=== PATIENT | male | born 1970 | race Caucasian/White ===

== ENCOUNTER 2021-03-05 09:03 | Observation (INO) | payer OTHER, SELFPAY ==
[2021-03-05 09:03] VITALS: BP 147/69; PULSE 67; RESP 20; TEMP 36.4; O2SAT 100; BMI 36.3
--- NOTE | 2021-03-05 09:15 | CT_ITS ---
STUDY: CT ABDOMEN AND PELVIS WITHOUT CONTRAST REASON FOR EXAM: Male, 50 years old. Flank pain RADIATION DOSAGE (If Supplied By Facility): CTDIvol = ( 19.73 ) mGy, DLP = ( 1158.42 ) mGycm TECHNIQUE: Transaxial images were obtained from the dome of the diaphragm to the symphysis pubis without oral contrast, and without intravenous contrast. Sagittal and coronal images were reconstructed. Individualized dose optimization techniques were used for this CT. COMPARISON: None. FINDINGS: Calcified granulomas in the right lower lobe The visualized portions of the heart are within normal limits. Normal liver. Normal gallbladder and extrahepatic biliary system. There is a benign calcified granuloma of the spleen. Normal pancreas. Normal bilateral adrenal glands. Normal right kidney. There is a 3.9 mm calculus in the distal portion of the left ureter just proximal to the ureterovesical junction. There is also evidence of a 5.6 mm calculus at the left ureterovesical junction. Clinical correlation is recommended. Normal visualized stomach. Normal small intestine. There are scattered colonic diverticula consistent with diverticulosis. The patient is status post appendectomy. Normal abdominal aorta. Normal inferior vena cava. There is borderline retroperitoneal lymphadenopathy with enlarged nodes no greater than 10mm in the short axis diameter. Normal urinary bladder. Normal abdominal wall. Normal osseous structures. CT/Abdomen/Pelvis without Cont IMPRESSION: Findings suggestive of 2 ureteral calculi in the distal portion of the left ureter as well as at the left ureterovesical junction. Clinical correlation is recommended. Electronically Signed: Mark Montes MD at 10:37 EDT , Service support ,
--- NOTE | 2021-03-05 09:16 | EX.ED.DYSGE1 ---
HPI History of Present Illness Chief Complaint: Back Detail of Chief Complaint: Patient presents with back pain that started yesterday as well as lower abd Informant: patient Onset/Context/Timing Onset: Yesterday Current Severity: 9/10 Worsened by: Movement Relieved by: Nothing Narrative Narrative: Patient presents to the emergency department complaint of back pain that started yesterday while mowing the lawn. Patient states that initially had some cramping and spasms in his lower back and then he went to move a swing and developed sudden onset of severe pain in his back. Patient also complaining of some lower abdominal discomfort. Pain is severe and worse with certain movements. He is not had any urinary symptoms. He denies nausea or vomiting. Patient has not had pain like this before. He denies pain rating down his legs. He denies weakness in extremities. He denies change in bowel or bladder function. Patient has not had recent illness. No significant medical history otherwise. Prior similar symptoms: No PFSH PFSH Medical History (Updated 03/05/21 @ 12:[address] Shayla Jaimes, ) Chronic systolic (congestive) heart failure DM (diabetes mellitus) Hypercalciuria Hyperlipemia Klinefelter syndrome Obesity (BMI 35.0-39.9 without comorbidity) Osteopenia Primary male hypogonadism Vitamin D deficiency Home Medications Multi Vitamin 1 tab PO/SL DAILY 03/05/21 [History Last Taken Unknown] ergocalciferol (vitamin D2) [Vitamin D2] 50,000 unit PO Q14D 03/05/21 [History Last Taken Unknown] hydrochlorothiazide 25 mg PO DAILY 03/05/21 [History Last Taken Unknown] metoprolol succinate 50 mg PO DAILY 03/05/21 [History Last Taken Unknown] rosuvastatin 20 mg PO DAILY 03/05/21 [History Last Taken Unknown] Allergy/AdvReac Type Severity Reaction Status Date / Time hydrogen peroxide Allergy Rash Verified 03/05/21 09:06 [From Peroxyl] Penicillins Allergy Hives Verified 03/05/21 09:06 sulfamethoxazole Allergy NEEDS Verified 03/05/21 09:06 [From Bactrim] FOLLOW-UP trimethoprim [From Bactrim] Allergy NEEDS Verified 03/05/21 09:06 FOLLOW-UP Surgical History (Updated 03/05/21 @ 09:13 by Valeria Loya) History of appendectomy Social History Smoking Status: Never smoker ROS ROS ED Constitutional Constitutional ED: Reports systems reviewed and no addt'l complaints, except as documented; Denies body ache(s), change in weight or chills Eyes Eyes: Denies acute decrease in peripheral vision, change in vision, double vision or loss of vision ENT ENT ED: Reports none; Denies ear pain, lip swelling, loss taste/smell, neck pain, otalgia or sore throat Cardiovascular Cardiovascular: Reports none; Denies abdominal pain, chest pain with activity, leg edema, lightheadedness, palpitations, rapid heart rate or syncope Respiratory/Chest Respiratory/Chest: Reports none; Denies change in mental status, dry cough, dyspnea, hemoptysis, shortness of breath at rest or shortness of breath with exertion Gastrointestinal Gastrointestinal: Reports none and abdominal pain; Denies change in stool character, diarrhea, hematemesis, hematochezia, melena, rectal bleeding or vomiting Genitourinary Genitourinary ED: Reports none; Denies abdominal discomfort, anuria, dysuria, genital pain or polyuria Musculoskeletal Musculoskeletal: Reports none and back pain; Denies arthralgias, difficulty walking, extremity pain, muscle weakness or myalgias Integumentary Reports none; Denies abscess or rash Neurologic Neurologic: Reports none; Denies abnormal gait, confusion, focal weakness, frequent falls, headache(s), loss of vision, numbness, paresthesias, radicular pain, vertigo or weakness Psychiatric Psychiatric: Reports systems reviewed and no addt'l complaints, except as documented and none; Denies behavioral changes, confusion, difficulty concentrating, hallucinations, suicidal ideation, tactile hallucinations or visual hallucinations Endocrine Endocrinology: Denies none, cold intolerance, excessive sweating, fatigue or heat intolerance Hematologic/Lymphatic Hematologic/Lymphatic: Reports none; Denies anemia, easy bleeding or easy bruising Allergic/Immunologic Allergic/Immunologic ED: Denies as per HPI, none, lip swelling, mouth swelling, throat swelling, tongue swelling or hives EXAM Physical Exam Const Vital Signs: 03/05/21 09:03 Temperature 97.6 F L Temperature Source Temporal Pulse Rate 67 Respiratory Rate 20 H Blood Pressure 147/69 H Blood Pressure Mean 95 Pulse Ox 100 Oxygen Delivery Method Room Air Positive well nourished and well developed General Appearance ED: well developed and NAD HEENT Reports TM's clear and moist mucous membranes normocephalic and atraumatic; Negative for trauma or tenderness Tympanic Membrane ED: Yes TM's clear Eyes PERRL and EOMs intact bilaterally General Eye ED: Negative for pale conjunctiva or scleral icterus Neck no lymphadenopathy, supple and no JVD General: Negative for tenderness Chest Wall inspection of chest normal and palpation of chest normal Chest: Negative for tenderness Resp normal respiratory effort and clear to auscultation bilaterally Effort and Inspection: Negative for respiratory distress or pain with movement Auscultation: Negative for rhonchi, wheezes or diminished lung sounds Cardio regular rate, regular rhythm, S1 normal heart sound, S2 normal heart sound and no murmurs Peripheral Pulses: pulses 2+ throughout GI normal to inspection, nondistended, normoactive bowel sounds, soft to palpation, non-distended and no masses GI Narrative: Patient has diffuse tenderness to the lower abdomen to the right lower quadrant suprapubic and left lower quadrant region. No rebound, rigidity, or peritoneal signs noted. No masses palpated. Palpation: soft Back/Spine no CVA tenderness and no thoracic nor lumbar tenderness Back/Spine Narrative: Patient has mostly mid back tenderness on exam over L1-L2 area. Negative straight leg raises. Deep tendon reflexes are plus 2 out of 4 bilaterally at the patella Achilles. Patient has normal 5 extension bilaterally. Normal sensation to light touch. Lumbar Spine / Lower Back: lumbar spinal tenderness Extremity normal to inspection General Extremety ED: Negative for edema General Extremity: Negative for edema Neuro oriented x3, CN's II-XII intact bilaterally, no sensory deficits noted and gait normal Sensorium / Orientation: awake, alert, oriented to person, oriented to place and oriented to time Motor Exam: strength 5/5 throughout and strength abnormal Psych mental status grossly normal Skin no rashes or lesions noted and no wounds MDM MDM MDM Narrative Medical decision making narrative: Patient initially medicated with morphine and Zofran and did not get much pain relief with that. He was then given a Dilaudid 1 mg dose and he did get pain relief with that however still complaining of a lot of pain with movement. Initially recommended transfer to facility where urology would be available to see the patient as I suspect he may have kidney stones. I discussed case with [facility] urologist who looked at the images and stated that the patient does not have urolithiasis but rather phleboliths and does not feel that patient needs transfer to their facility for any type of intervention. I did evaluate the images personally and I am not convinced that the calcifications in the pelvis are within the ureter but rather more loss control representative of phleboliths. Patient does not have hydroureter or hydronephrosis or perinephric stranding. At this point I feel patient needs admission for pain management. Patient did become somewhat somnolent after medication with Dilaudid. Lab Data Labs: Laboratory Results - last 24 hr 03/05/21 03/05/21 03/05/21 09:28 09:41 09:41 WBC 5.1 RBC 4.88 Hgb 14.2 Hct 44.6 MCV 91.4 MCH 29.1 MCHC 31.8 L RDW Std Deviation 42.0 RDW Coeff of Pilar 12.8 Plt Count 199 MPV 10.0 Immature Gran % (Auto) 0.200 Neut % (Auto) 57.5 Lymph % (Auto) 24.7 [place] % (Auto) 7.6 Eos % (Auto) 8.8 H Baso % (Auto) 1.2 H Absolute Neuts (auto) 2.9 Absolute Lymphs (auto) 1.26 Nucleated RBC % 0 Sodium 138 Potassium 3.9 Chloride 102 Carbon Dioxide 30.0 Anion Gap 6 BUN 22 H Creatinine 1.18 Estim Creat Clear Calc 84.03 Est GFR (MDRD) Af Amer 84 Est GFR (MDRD) Non-Af 70 BUN/Creatinine Ratio 18.6 Glucose 108 H Calcium 9.9 Urine Color Yellow Urine Clarity Clear Urine pH 7.0 Ur Specific [place] 1.010 Urine Protein Negative Urine Glucose (UA) Normal Urine Ketones Negative Urine Occult Blood Negative Urine Nitrite Negative Urine Bilirubin Negative Urine Urobilinogen Normal Ur Leukocyte Esterase Negative Urine RBC 0 SEEN Urine WBC 0 SEEN Ur Squamous Epith Cells 0-5 SEEN Urine Bacteria 0 SEEN Urine Mucus 0 SEEN Radiography Diagnostic Testing: Radiology Impression Abdomen/Pelvis CT 03/05/21 09:15 IMPRESSION: Findings suggestive of 2 ureteral calculi in the distal portion of the left ureter as well as at the left ureterovesical junction. Clinical correlation is recommended. Electronically Signed: Mark Montes MD at 10:37 EDT , Service support , Discharge Plan Dx/Rx/DC Orders Clinical Impression: Intractable back pain Disposition Disposition: Acute Care Hospital [facility]
[2021-03-05 09:32] LABS: Bacteria 0 SEEN /hpf (None Seen); Mucous, Urine 0 SEEN /hpf (<or=2+); Red Blood Cells-Urine 0 SEEN /hpf (0-5); White Blood Cells 0 SEEN /hpf (0-5)
[2021-03-05 09:34] LABS: Color, Urine Yellow (Yellow); Glucose, Dipstick Normal (Normal); Ketone-Dipstick Negative (Negative); Leukocyte Esterase-Dipstick Negative /ul (Negative); Nitrite-Dipstick Negative (Negative); Occult Blood-Urine Negative /ul (Negative); Protein-Dipstick Negative (Negative); Urine Bilirubin Dipstick Negative (Negative); Urine Clarity Clear (Clear); Urine Urobilinogen Normal (Normal)
[2021-03-05] MEDS: Ondansetron 4 MG/2 ML Vial IV ×2 (09:37→14:26)
[2021-03-05] MEDS: Ketorolac 30 MG/ML Syringe IV (09:37)
[2021-03-05] MEDS: Morphine 4 MG/ML Syringe IV (09:37)
[2021-03-05 09:40] LABS: Squamous Epithelial Cells - UA 0-5 SEEN /hpf (0-5)
[2021-03-05] MEDS: 0.9% Normal Saline 1,000 ML 1000 ML IV (09:43)
[2021-03-05] MEDS: 0.9% Normal Saline 1,000 ML 150 ML IV (09:43)
[2021-03-05 09:52] LABS: Absolute Lymphocyte Count 1.26 X10^3/uL (0.83-4.51); Absolute Neutrophil Count 2.9 X10^3/uL (2.0-7.7); Basophil# 0.06 X10^3/uL; Basophil% 1.2 % (0-1); Eosinophil# 0.45 X10^3/uL; Eosinophils% 8.8 % (0-5); Hematocrit 44.6 % (40-54); Hemoglobin 14.2 g/dL (13.0-16.5); Lymphocyte # 1.26 X10^3/ul (0.83-4.51); Lymphocyte % 24.7 % (19-41); Mean Corp Hgb Conc 31.8 g/dL (32-36); Mean Corpuscular Hgb 29.1 pg (27.0-32.0); Mean Corpuscular Volume 91.4 fL (80-94); Monocyte# 0.39 X10^3/uL; Monocyte% 7.6 % (0-10); NRBC Flagged by Analyzer 0 % (0-5); Neutrophil # 2.93 X10^3/uL (2.7-7.7); Neutrophil % 57.5 % (47-70); Platelet Count 199 K/mm3 (150-450); RBC Distribution Width CV 12.8 % (11.6-14.6); Red Blood Count 4.88 M/mm3 (4.6-6.2); White Blood Count 5.1 K/mm3 (4.4-11.0)
[2021-03-05 10:05] LABS: Anion Gap 6 (5-15); BUN 22 mg/dL (7-18); BUN/Creat Ratio 18.6 RATIO (10-20); Calcium,Total 9.9 mg/dL (8.5-10.1); Chloride 102 mmol/L (98-107); Creatinine, Serum 1.18 mg/dL (0.70-1.30); EST Glomerular Filtration Rate 70 mL/min (>60); Est Glom Filt Rate - Afr Amer 84 mL/min (>60); Estimated Creatinine Clearance 84.03 ml/min; Glucose 108 mg/dL (74-106); Potassium 3.9 mmol/L (3.5-5.1); Sodium Level 138 mmol/L (136-145)
[2021-03-05] MEDS: HYDROmorphone 1 MG/ML Syringe IV (10:51)
[2021-03-05 12:16] VITALS: BP 140/70; PULSE 75; RESP 18; TEMP 36.7; O2SAT 96
--- NOTE | 2021-03-05 12:45 | NURSING ---
302 willie intractable back pain
--- NOTE | 2021-03-05 13:05 | HP.PCM_ITS ---
[facility] - General General Date of Admission: 03/05/21 HPI Narrative PEDRO SYLVESTER, is a 50 M with a past medical history as outlined was admitted through the ED on 03/05/2021 with a complaint of back pain. Patient states he was mowing his lawn the day before admission and tried moving a swing set out of the way so he could mow the area. He subsequently started having severe lower back pain. Pain was not relieved by [id number] pain meds and was persistent and worsening so he decided to come into the ED. He has not had such pain before and denied any urinary or fecal incontinence or any numbness or tingling in his lower extremities. Blood pressure was 147/69 and pulse rate was 67 with respiratory of 20 he was saturating at 100% on room air. CT of the abdomen and pelvis done without contrast was suggestive of 2 ureteral calculi in the distal portion of the left ureter as well as the left ureterovesical junction with clinical correlation recommended. 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 Urologist reviewed imaging and thought it was just phleboliths and did not think that it was kidney stones. Patient is therefore being admitted to be managed for intractable back pain which did not improve with pain meds in the ED. [facility] Medical History (Updated 03/05/21 @ 12:[address] Shayla Jaimes, ) Chronic systolic (congestive) heart failure DM (diabetes mellitus) Hypercalciuria Hyperlipemia Klinefelter syndrome Obesity (BMI 35.0-39.9 without comorbidity) Osteopenia Primary male hypogonadism Vitamin D deficiency Home Medications Multi Vitamin 1 tab PO/SL DAILY 03/05/21 [History Last Taken Unknown] calcium 1,500 mg PO DAILY 03/05/21 [History Last Taken 03/04/21] ergocalciferol (vitamin D2) [Vitamin D2] 50,000 unit PO Q14D 03/05/21 [History Last Taken Unknown] hydrochlorothiazide 25 mg PO DAILY 03/05/21 [History Last Taken Unknown] metoprolol succinate 50 mg PO DAILY 03/05/21 [History Last Taken Unknown] rosuvastatin 20 mg PO DAILY 03/05/21 [History Last Taken Unknown] Allergy/AdvReac Type Severity Reaction Status Date / Time hydrogen peroxide Allergy Rash Verified 03/05/21 09:06 [From Peroxyl] Penicillins Allergy Hives Verified 03/05/21 09:06 sulfamethoxazole Allergy NEEDS Verified 03/05/21 09:06 [From Bactrim] FOLLOW-UP trimethoprim [From Bactrim] Allergy NEEDS Verified 03/05/21 09:06 FOLLOW-UP Surgical History (Updated 03/05/21 @ 09:13 by Valeria Loya) History of appendectomy Social History Smoking Status: Never smoker ROS Constitutional Constitutional: Denies anorexia, change in weight, chills, fatigue, fever(s), malaise, night sweats, weakness, weight gain or weight loss Eyes Eyes: Denies discharge from eye(s) ENT HEENT: Denies dysphagia Cardiovascular Cardiovascular: Denies chest pain, edema, orthopnea, palpitations or syncope Respiratory/Chest Respiratory/Chest: Denies cough, shortness of breath at rest or shortness of breath with exertion Gastrointestinal Gastrointestinal: Denies abdominal pain or constipation Musculoskeletal Musculoskeletal: Reports back pain; Denies extremity pain, joint pain, joint stiffness, joint swelling, limited range of motion, muscle weakness, neck pain or stiffness Integumentary Integumentary: Denies dry skin Neurologic Neurologic: Denies abnormal gait Psychiatric Psychiatric: Denies anxiety Endocrine Endocrinology: Denies change in body appearance Vital Signs Vital Signs Vital Signs: 03/05/21 09:03 Temperature 97.6 F L Temperature Source Temporal Pulse Rate 67 Respiratory Rate 20 H Blood Pressure 147/69 H Blood Pressure Mean 95 Pulse Ox 100 Oxygen Delivery Method Room Air Physical Exam Const alert Constitutional Narrative: he was lethargic as he had just received IV pain meds in the ED Orientation / Consciousness: lethargic HEENT moist oral mucous membranes; Negative for head/scalp atraumatic Eyes Negative for PERRL or EOMs intact bilaterally Neck No supple Lymph Lymphatic: Negative for no lymphadenopathy noted Resp normal respiratory effort, normal air movement and clear to auscultation bilaterally Cardio regular rate, regular rhythm, S1 normal heart sound, S2 normal heart sound and no murmurs GI normal to inspection, nondistended, normoactive bowel sounds, soft to palpation, non-tender and non-distended Palpation: no hepatosplenomegaly Extremity normal capillary refill and no clubbing, cyanosis or edema Extremity Narrative: has lower back tenderness with paraspinal muscle spasms General Extremity: no tenderness to palpation of joints or extremities Skin General Skin Exam: turgor normal Rashes: no rashes Neuro CN's II-XII intact bilaterally, no sensory deficits noted and deep tendon reflexes 2+ bilaterally Psych affect normal Lab / Micro Data Result Diagrams: 03/05/21 09:41 03/05/21 09:41 Labs: Laboratory Results - last 24 hr 03/05/21 03/05/21 03/05/21 09:28 09:41 09:41 WBC 5.1 RBC 4.88 Hgb 14.2 Hct 44.6 MCV 91.4 MCH 29.1 MCHC 31.8 L RDW Std Deviation 42.0 RDW Coeff of Pilar 12.8 Plt Count 199 MPV 10.0 Immature Gran % (Auto) 0.200 Neut % (Auto) 57.5 Lymph % (Auto) 24.7 [place] % (Auto) 7.6 Eos % (Auto) 8.8 H Baso % (Auto) 1.2 H Absolute Neuts (auto) 2.9 Absolute Lymphs (auto) 1.26 Nucleated RBC % 0 Sodium 138 Potassium 3.9 Chloride 102 Carbon Dioxide 30.0 Anion Gap 6 BUN 22 H Creatinine 1.18 Estim Creat Clear Calc 84.03 Est GFR (MDRD) Af Amer 84 Est GFR (MDRD) Non-Af 70 BUN/Creatinine Ratio 18.6 Glucose 108 H Calcium 9.9 Urine Color Yellow Urine Clarity Clear Urine pH 7.0 Ur Specific [place] 1.010 Urine Protein Negative Urine Glucose (UA) Normal Urine Ketones Negative Urine Occult Blood Negative Urine Nitrite Negative Urine Bilirubin Negative Urine Urobilinogen Normal Ur Leukocyte Esterase Negative Urine RBC 0 SEEN Urine WBC 0 SEEN Ur Squamous Epith Cells 0-5 SEEN Urine Bacteria 0 SEEN Urine Mucus 0 SEEN Micro: Microbiology 03/05/21 11:18 SARS-CoV-2 Antigen (Rapid) - Final Mucosa - Nasopharyngeal Radiology Impression Abdomen/Pelvis CT 03/05/21 09:15 IMPRESSION: Findings suggestive of 2 ureteral calculi in the distal portion of the left ureter as well as at the left ureterovesical junction. Clinical correlation is recommended. Electronically Signed: Mark Montes MD at 10:37 EDT , Service support , Assessment & Plan Assessment/Plan (1) Intractable back pain: Status: Acute Code(s): M54.9 - Dorsalgia, unspecified Plan: Admit to med surg IV dilaudid for pain. PO tylenol fall precautions consult PT/OT #Hypertension -On metoprolol and hydrochlorothiazide. Will continue. #Hyperlipidemia: On statin DVT prophylaxis: SCDs. Visit Charges OBSV E&M: 26165 Initial observation care L2
[2021-03-05 13:14] VITALS: BMI 36.1
[2021-03-05 13:24] VITALS: BP 132/74; PULSE 56; RESP 16; TEMP 36.4; O2SAT 95
[2021-03-05 14:11] VITALS: PULSE 56
[2021-03-05] MEDS: Metoprolol(XL)Succ 50 MG Tablet PO (14:11)
[2021-03-05] MEDS: 0.9% Saline Lock 10 ML Syringe IV (14:26)
[2021-03-05 18:10] VITALS: BP 124/74; PULSE 66; RESP 16; TEMP 36.8; O2SAT 94
[2021-03-05] MEDS: oxyCODONE 5 MG Tablet 10 MG PO (20:11)
[2021-03-05] MEDS: Acetaminophen 325 MG Tablet 650 MG PO (20:12)
[2021-03-05 23:05] VITALS: BP 123/75; PULSE 63; RESP 18; TEMP 36.7; O2SAT 96
--- NOTE | 2021-03-06 | MRI_ITS ---
STUDY: MRI LUMBAR SPINE WITHOUT CONTRAST REASON FOR EXAM: Male, 50 years old. severe lower back pain, abd pain TECHNIQUE: Standardized fat and water weighted pulse sequences were obtained in the sagittal and axial planes. COMPARISON: None FINDINGS: T12-L1: Normal endplates. Normal disc height, hydration and morphology. Normal bilateral facet joints. Normal central canal and bilateral lateral recesses. Normal bilateral intervertebral neural foramina. Normal lumbar lordosis. There is no substantial scoliosis. Normal conus medullaris that terminates at the L1/L2. L1-2: Normal endplates. Normal disc height, hydration and morphology. Normal bilateral facet joints. Normal central canal and bilateral lateral recesses. Normal bilateral intervertebral neural foramina. L2-3: Mild disc desiccation but no disc protrusion, spinal stenosis, or neural foraminal stenosis. L3-4: Normal endplates. Normal disc height, hydration and morphology. Normal bilateral facet joints. Normal central canal and bilateral lateral recesses. Normal bilateral intervertebral neural foramina. L4-5: Mild disc desiccation but no disc protrusion, spinal stenosis, or neural foraminal stenosis. L5-S1: Normal endplates. Normal disc height, hydration and morphology. Normal bilateral facet joints. Normal central canal and bilateral lateral recesses. Normal bilateral intervertebral neural foramina. Normal visualized sacral ala. Normal visualized paraspinous soft tissue structures. MRI/Spine Lumbar (Routine) IMPRESSION: Some disc desiccation but no spinal stenosis or neural foraminal stenosis. Electronically Signed: Cecil Chiu MD at 16:25 EDT Tel , Service support ,
[2021-03-06 04:14] VITALS: BP 139/67; PULSE 53; RESP 16; TEMP 37; O2SAT 98
[2021-03-06 06:53] LABS: Absolute Lymphocyte Count 1.63 X10^3/uL (0.83-4.51); Basophil# 0.03 X10^3/uL; Basophil% 0.5 % (0-1); Eosinophil# 0.41 X10^3/uL; Eosinophils% 6.3 % (0-5); Hematocrit 42.3 % (40-54); Lymphocyte # 1.63 X10^3/ul (0.83-4.51); Lymphocyte % 24.9 % (19-41); Mean Corp Hgb Conc 30.7 g/dL (32-36); Mean Corpuscular Volume 94.2 fL (80-94); Mean Platelet Vol. 10.5 fl (6.2-12.0); Monocyte# 0.45 X10^3/uL; Monocyte% 6.9 % (0-10); NRBC Flagged by Analyzer 0 % (0-5); Neutrophil % 61.1 % (47-70); Platelet Count 188 K/mm3 (150-450); RBC Distribution Width CV 12.8 % (11.6-14.6); Red Blood Count 4.49 M/mm3 (4.6-6.2); White Blood Count 6.5 K/mm3 (4.4-11.0)
[2021-03-06] MEDS: Atorvastatin Calcium 40 MG Tablet PO (07:23)
[2021-03-06] MEDS: Multivitamins,Therapeutic Tablet 1 TABLET PO (07:23)
[2021-03-06] MEDS: hydroCHLOROthiazide 25 MG Tablet PO (07:23)
[2021-03-06 07:24] VITALS: PULSE 53
[2021-03-06] MEDS: Metoprolol(XL)Succ 50 MG Tablet PO (07:24)
[2021-03-06] MEDS: oxyCODONE 5 MG Tablet 10 MG PO ×2 (07:25→11:55)
[2021-03-06] MEDS: Acetaminophen 325 MG Tablet 650 MG PO (07:26)
[2021-03-06 07:27] VITALS: BP 135/65; PULSE 53; RESP 16; TEMP 36.3; O2SAT 98
[2021-03-06 08:11] LABS: Anion Gap 5 (5-15); BUN 19 mg/dL (7-18); BUN/Creat Ratio 18.8 RATIO (10-20); Calcium,Total 9.3 mg/dL (8.5-10.1); Chloride 102 mmol/L (98-107); Creatinine, Serum 1.01 mg/dL (0.70-1.30); EST Glomerular Filtration Rate 84 mL/min (>60); Est Glom Filt Rate - Afr Amer 101 mL/min (>60); Estimated Creatinine Clearance 98.17 ml/min; Glucose 109 mg/dL (74-106); Sodium Level 136 mmol/L (136-145)
[2021-03-06] MEDS: Calcium Carbonate 500 MG Tablet 1500 MG PO (11:52)
[2021-03-06 12:43] VITALS: BP 125/77; PULSE 55; RESP 16; TEMP 37.1; O2SAT 99
--- NOTE | 2021-03-06 12:59 | PN.HOSP_ITS ---
Subjective Subjective: Patient seen and examined. He still complains of back pain. He rates pain at about 7 out of 10 today. Review of symptoms otherwise negative. He denies any urinary or fecal incontinence. He has remained hemodynamically stable though he has been mildly bradycardic. Objective Data Objective Data Vital Signs: Vital Signs Temp Pulse Resp BP Pulse Ox 98.8 F 55 L 16 125/77 H 99 03/06/21 12:43 03/06/21 12:43 03/06/21 12:43 03/06/21 12:43 03/06/21 12:43 Oxygen Delivery Method Room Air Weight: 266 lb Body Mass Index (BMI) 36.1 Intake & Output: Intake and Output for Last 24 Hours 03/04/21 03/05/21 03/06/21 23:59 23:59 23:59 Intake Total 1600 / 2100 1100 / 1100 Output Total 2000 / 1999 Balance 1600 / 1500 -900 / -900 Lab / Micro Data Result Diagrams: 03/06/21 05:50 03/06/21 07:34 Labs: Laboratory Results - last 24 hr 03/06/21 03/06/21 03/06/21 05:50 05:50 07:34 WBC 6.5 RBC 4.49 L Hgb 13.0 Hct 42.3 MCV 94.2 H MCH 29.0 MCHC 30.7 L RDW Std Deviation 44.0 H RDW Coeff of [place]ilar 12.8 Plt Count 188 MPV 10.5 Immature Gran % (Auto) 0.300 Neut % (Auto) 61.1 Lymph % (Auto) 24.9 [place] % (Auto) 6.9 Eos % (Auto) 6.3 H Baso % (Auto) 0.5 Absolute Neuts (auto) 4.0 Absolute Lymphs (auto) 1.63 Nucleated RBC % 0 Sodium Cancelled 136 Potassium Cancelled 4.0 Chloride Cancelled 102 Carbon Dioxide Cancelled 29.0 Anion Gap Cancelled 5 BUN Cancelled 19 H Creatinine Cancelled 1.01 Estim Creat Clear Calc Cancelled 98.17 Est GFR (MDRD) Af Amer Cancelled 101 Est GFR (MDRD) Non-Af Cancelled 84 BUN/Creatinine Ratio Cancelled 18.8 Glucose Cancelled 109 H Calcium Cancelled 9.3 Micro: Microbiology 03/05/21 11:18 Mucosa - Nasopharyngeal SARS-CoV-2 Antigen (Rapid) - Final Physical Exam Const alert Constitutional Narrative: he was lethargic as he had just received IV pain meds in the ED HEENT moist oral mucous membranes; Negative for head/scalp atraumatic Head and Scalp: normocephalic Eyes PERRL and EOMs intact bilaterally Neck no lymphadenopathy and supple Lymph Lymphatic: Negative for no lymphadenopathy noted Resp normal respiratory effort, normal air movement and clear to auscultation bilaterally Cardio regular rate, regular rhythm, S1 normal heart sound, S2 normal heart sound and no murmurs GI normal to inspection, nondistended, normoactive bowel sounds, soft to palpation, non-tender and non-distended Palpation: no hepatosplenomegaly Extremity normal capillary refill and no clubbing, cyanosis or edema Extremity Narrative: has minimal tenderness with palpation of lower back General Extremity: no tenderness to palpation of joints or extremities Skin General Skin Exam: turgor normal Rashes: no rashes Neuro CN's II-XII intact bilaterally, no sensory deficits noted and deep tendon reflexes 2+ bilaterally Psych affect normal Assessment & Plan Assessment/Plan (1) Intractable back pain: Status: Acute Code(s): M54.9 - Dorsalgia, unspecified Plan: #Intractable lower back pain * still having severe lower back pain * has no urinary or fecal incontinence * will get MRI of lumbar spine today, in light of severe persistent lower back pain * continue pO tylenol, oxycodone and IV dilaudid for paiin * #Hypertension -On metoprolol and hydrochlorothiazide. #Bradycardia * Heart rate is 55 today. He is asymptomatic. Will monitor and continue metoprolol for now. Bradycardia worsens, will adjust dose of metoprolol. #Hyperlipidemia: On statin DVT prophylaxis: SCDs.
[2021-03-06 14:46] VITALS: BP 118/48; PULSE 55; RESP 16; TEMP 37.1; O2SAT 97
[2021-03-06 20:45] VITALS: BP 128/55; PULSE 61; RESP 18; TEMP 37.1; O2SAT 98
[2021-03-07 03:08] VITALS: BP 121/70; PULSE 55; RESP 16; TEMP 36.4; O2SAT 96
[2021-03-07] MEDS: hydroCHLOROthiazide 25 MG Tablet PO (08:08)
[2021-03-07] MEDS: Multivitamins,Therapeutic Tablet 1 TABLET PO (08:08)
[2021-03-07 08:09] VITALS: PULSE 66
[2021-03-07] MEDS: Metoprolol(XL)Succ 50 MG Tablet PO (08:09)
[2021-03-07] MEDS: Atorvastatin Calcium 40 MG Tablet PO (08:09)
[2021-03-07 08:12] VITALS: BP 146/77; PULSE 66; RESP 18; TEMP 36.7; O2SAT 99
--- NOTE | 2021-03-07 10:16 | PCM.DC ---
Discharge Instructions Outpatient Procedure Reason For Visit: INTRACTABLE BACK PAIN Diet Discharge Diet: Low fat / Low cholesterol Activity Discharge Activity: Return to Normal Activity Weight Bearing Status: Weight bearing as tolerated Dressing / Incision Call your doctor if you observe: Uncontrolled pain Follow Up Care When: follow up with PCP in 1-2 weeks Test Results: Test results from this visit will be discussed in further detail at your follow-up appointment, if applicable. Discharge Plan Admission Admit Date/Time: 03/05/21 12:13 Primary Reason for Your Visit: Intractable back pain Attending Provider: Geena Albarran Primary Care Provider: Richie Haley Instructions Patient Instructions: ED Back Care Tips, ED Pain, Acute, Uncertain Cause Discharge Orders/Prescriptions Prescriptions: New acetaminophen [Tylenol] 325 mg Tablet 650 mg PO Q6H PRN PRN (Reason: Pain Score 1-10/Temp > 100.7 F) Qty: 30 RF: 0 oxycodone 10 mg tablet 10 mg PO Q6H PRN (Reason: pain) 3 Days Qty: 12 RF: 0 Continued metoprolol succinate 50 mg tablet extended release 24 hr 50 mg PO DAILY RF: 0 hydrochlorothiazide 25 mg tablet 25 mg PO DAILY RF: 0 ergocalciferol (vitamin D2) 25,000 unit Capsule 50,000 unit PO Q14D RF: 0 rosuvastatin 20 mg tablet 20 mg PO DAILY RF: 0 Multi Vitamin 1 TAB tablet 1 tab PO.IVFORM DAILY RF: 0 calcium 500 mg Tablet 1,500 mg PO DAILY RF: 0 Referrals: Richie Haley MD [Primary Care Provider] - Disposition Disposition (needs filled in before D/C Order can be placed): Home, self care
--- NOTE | 2021-03-07 11:36 | PHA.DC.MC ---
Pharmacy Service has performed discharge medication reconciliation and counseling for this patient. The patient was counseled on the following discharge medications and changes in medications for homegoing were reviewed. 1. TYLENOL 2. OXYCODONE The Reason for Use, instructions for use, and potential side effects were reviewed for all new medications. The patient's questions regarding all of their medications were answered. The patient was able to verbally demonstrate an understanding of their discharge medications. Home Medications Multi Vitamin 1 tab PO.IVFORM DAILY 03/05/21 calcium 1,500 mg PO DAILY 03/05/21 ergocalciferol (vitamin D2) 50,000 unit PO Q14D 03/05/21 hydrochlorothiazide 25 mg PO DAILY 03/05/21 metoprolol succinate 50 mg PO DAILY 03/05/21 rosuvastatin 20 mg PO DAILY 03/05/21 acetaminophen [Tylenol] 650 mg PO Q6H PRN PRN #30 tab 03/07/21 oxycodone 10 mg PO Q6H PRN 3 Days #12 tab 03/07/21 The patient's discharge medication list was reviewed for discrepancies and discrepancies were resolved.
--- NOTE | 2021-03-07 16:39 | PCM.DC.SUM ---
Providers Date of Admission: 03/05/21 Primary Care Physician: Dr. Richie Haley MD Reason For Visit: INTRACTABLE BACK PAIN Diagnosis Discharge Diagnosis (1) Intractable back pain: Status: Acute Code(s): M54.9 - Dorsalgia, unspecified Medications at Discharge Home Medications Multi Vitamin 1 tab PO.IVFORM DAILY 03/05/21 calcium 1,500 mg PO DAILY 03/05/21 ergocalciferol (vitamin D2) 50,000 unit PO Q14D 03/05/21 hydrochlorothiazide 25 mg PO DAILY 03/05/21 metoprolol succinate 50 mg PO DAILY 03/05/21 rosuvastatin 20 mg PO DAILY 03/05/21 acetaminophen [Tylenol] 650 mg PO Q6H PRN PRN #30 tab 03/07/21 oxycodone 10 mg PO Q6H PRN 3 Days #12 tab 03/07/21 Hospital Course Operations None Procedures None Summary of Care Provided Minutes Spent on Discharge: 45 Hospital Course: PEDRO SYLVESTER, is a 50 M with a past medical history as outlined was admitted through the ED on 03/05/2021 with a complaint of back pain. Patient states he was mowing his lawn the day before admission and tried moving a swing set out of the way so he could mow the area. He subsequently started having severe lower back pain. Pain was not relieved by [id number] pain meds and was persistent and worsening so he decided to come into the ED. He has not had such pain before and denied any urinary or fecal incontinence or any numbness or tingling in his lower extremities. Blood pressure was 147/69 and pulse rate was 67 with respiratory of 20 he was saturating at 100% on room air. CT of the abdomen and pelvis done without contrast was suggestive of 2 ureteral calculi in the distal portion of the left ureter as well as the left ureterovesical junction with clinical correlation recommended. The CT findings were discussed by the ED doctor or the urologist on-call at [facility] where he intended to transfer patient as there is no urologist congreg[facility] on day of admission. Urologist reviewed imaging and thought it was just phleboliths and did not think that it was kidney stones. Patient was never admitted to manage for intractable back pain. He was placed on IV pain medication as well as being hydrated with IV fluids. Pain persisted so patient had an MRI of the lumbar spine which showed some disc desiccation but no spinal stenosis or neural foraminal stenosis. Patient's pain subsequently improved and he was able to ambulate well. He remained stable and was discharged on 03/07/2021. He was discharged with a prescription for p.o. oxycodone 10 mg every 6 hours as needed for total of 12 tablets for 3 days. OARRS score was checked and no red flags were seen. He is to follow-up with his primary care doctor in 1 to 2 days. Patient was seen and examined prior to discharge. He had no complaints and felt much better and wanted to go home. Review of symptoms otherwise negative. Labs and vitals reviewed. Medication reviewed and reconciled. Physical Exam Const alert and no apparent distress General Appearance: cooperative and comfortable Orientation / Consciousness: awake, oriented to person and oriented to place Exam Limitations: no limitations HEENT moist oral mucous membranes; Negative for head/scalp atraumatic Eyes PERRL and EOMs intact bilaterally Neck no lymphadenopathy and supple Lymph Lymphatic: Negative for no lymphadenopathy noted Resp normal respiratory effort, normal air movement and clear to auscultation bilaterally Cardio regular rate, regular rhythm, S1 normal heart sound, S2 normal heart sound and no murmurs GI normal to inspection, nondistended, normoactive bowel sounds, soft to palpation, non-tender and non-distended Palpation: no hepatosplenomegaly Extremity normal to inspection, full ROM, normal capillary refill and no clubbing, cyanosis or edema General Extremity: no tenderness to palpation of joints or extremities Skin General Skin Exam: turgor normal Rashes: no rashes Neuro oriented x3, CN's II-XII intact bilaterally, no sensory deficits noted and deep tendon reflexes 2+ bilaterally Sensorium / Orientation: awake and alert Psych affect normal ABG / Lab / Microbiology Data Result Diagrams: 03/06/21 05:50 03/06/21 07:34 Microbiology: Microbiology 03/05/21 11:18 Mucosa - Nasopharyngeal SARS-CoV-2 Antigen (Rapid) - Final D/C Instructions Discharge Diet: Low fat / Low cholesterol Discharge Activity: Return to Normal Activity Weight Bearing Status: Weight bearing as tolerated Call your doctor if you observe: Uncontrolled pain When: follow up with PCP in 1-2 weeks Meaningful Use Info Meaningful Use Diagnoses (Choose all that apply): None applicable Discharge Plan Admission Admit Date/Time: 03/05/21 12:13 Primary Reason for Your Visit: Intractable back pain Attending Provider: Geena Albarran Primary Care Provider: Richie Haley Instructions Patient Instructions: ED Back Care Tips, ED Pain, Acute, Uncertain Cause Discharge Orders/Prescriptions Prescriptions: New acetaminophen [Tylenol] 325 mg Tablet 650 mg PO Q6H PRN PRN (Reason: Pain Score 1-10/Temp > 100.7 F) Qty: 30 RF: 0 oxycodone 10 mg tablet 10 mg PO Q6H PRN (Reason: pain) 3 Days Qty: 12 RF: 0 Continued metoprolol succinate 50 mg tablet extended release 24 hr 50 mg PO DAILY RF: 0 hydrochlorothiazide 25 mg tablet 25 mg PO DAILY RF: 0 ergocalciferol (vitamin D2) 25,000 unit Capsule 50,000 unit PO Q14D RF: 0 rosuvastatin 20 mg tablet 20 mg PO DAILY RF: 0 Multi Vitamin 1 TAB tablet 1 tab PO.IVFORM DAILY RF: 0 calcium 500 mg Tablet 1,500 mg PO DAILY RF: 0 Referrals: Richie Haley MD [Primary Care Provider] - Disposition Disposition (needs filled in before D/C Order can be placed): Home, self care Visit Charges OBSV E&M: [id number] Observation care discharge
== END 2021-03-07 11:31 | disposition home or self-care (01) ==
LOC: ED 12:07 → MS3 03-06 08:57
PROVIDERS: Admitting Provider Student in an Organized Health Care Education/Training Program; Emergency Provider Emergency Medicine; PCP Internal Medicine; Visit Provider Student in an Organized Health Care Education/Training Program
DX: M54.5 Low back pain (principal); I11.0 Hypertensive heart disease with heart failure; I50.22 Chronic systolic (congestive) heart failure; Q98.4 Klinefelter syndrome, unspecified; E55.9 Vitamin D deficiency, unspecified; E66.9 Obesity, unspecified; Z68.36 Body mass index [BMI] 36.0-36.9, adult; E78.5 Hyperlipidemia, unspecified; E11.9 Type 2 diabetes mellitus without complications; R00.1 Bradycardia, unspecified; Z79.899 Other long term (current) drug therapy
CPT/HCPCS: 36415; 72148; 74176; 80048; 81001; 85025; 87426; 96374; 96375; 96376; 97161; 99218; 99284; J7030; A4216; G0378; J2405